=== PATIENT | male | born 1965 | race Caucasian/White ===

== ENCOUNTER 2017-06-01 19:44 | Emergency (ER) | payer BC, OTHER ==
[2017-06-01 19:57] VITALS: BP 146/93; PULSE 80; TEMP 98.2; BMI 33.0
[2017-06-01] MEDS ORDERED: diphenhydrAMINE HCL 25 MG CAPSULE (FP) PO ONE ×2 (20:34→20:42)
--- NOTE | 2017-06-01 20:34 | PDOC ---
History of Present Illness - General Chief Complaint: Bite Stated Complaint: BEE STING Time Seen by Provider: 06/01/17 19:59 - History of Present Illness Initial Comments: 06/01/17 20:44 Patient is a 52-year-old male with no past medical history who presents to the emergency department today stating that he got stung by multiple bees this evening. Patient was walking the dog when he went off the sidewalk. He felt that there were multiple stings happening and then he realized he was being attacked by bees. Patient reports approximately 8-10 bee stings.He states that now the areas of the stings are painful and a couple of them itch. Denies shortness of breath, mouth swelling, any ALLERGY to bee stings. Past History - Travel Traveled outside of the country in the last 30 days: No Close contact w/someone who was outside of country & ill: No - Past Medical History Allergies/Adverse Reactions: Allergies Allergy/AdvReac Type Severity Reaction Status Date / Time No Known Allergies Allergy Verified 06/01/17 19:52 Home Medications: Ambulatory Orders Cetirizine HCl [Zyrtec Rapidly Dissolving Tab -] 10 mg PO DAILY 06/01/17 Other medical history: Pt denies - Psycho/Social/Smoking Cessation Hx Anxiety: No Suicidal Ideation: No Smoking Status: No Smoking History: Never smoked Have you smoked in the past 12 months: No Number of Cigarettes Smoked Daily: 0 Information on smoking cessation initiated: No Hx Alcohol Use: No Drug/Substance Use Hx: No Substance Use Type: Alcohol Review of Systems - Review of Systems Constitutional: No: Chills, Fever, Malaise, Weakness HEENTM: No: Throat Swelling, Mouth Swelling Respiratory: No: Cough, Shortness of Breath, Wheezing Integumentary: Yes: Erythema, Lesions All Other Systems: Reviewed and Negative *Physical Exam - Vital Signs Last Vital Signs Temp Pulse Resp BP Pulse Ox 98.2 F 80 20 146/93 99 06/01/17 19:53 06/01/17 19:53 06/01/17 19:53 06/01/17 19:53 06/01/17 19:53 - Physical Exam Comments: 06/01/17 20:45 GENERAL: [The patient is awake, alert, and fully oriented, in no acute distress. ] HEAD: [Normal with no signs of trauma.No mouth or tongue swelling] EYES: [Pupils equal, round and reactive to light, extraocular movements intact, sclera anicteric, conjunctiva clear.] RESPIRATORY: CTAB, Equal b/l breath sounds with good areation to the bases. No W /R/R. EXTREMITIES: [Normal range of motion, no edema.] NEUROLOGICAL: [Normal speech, normal gait.] PSYCH: [Normal mood, normal affect.] SKIN: [Mulitple bee sting noted on exam. Approximatley 8-10 bee stings located on his left nieves, left knee, right axilla, right forearm, scalp. Warm, Dry, normal turgor, no rashes ] Medical Decision Making - Medical Decision Making 06/01/17 20:47 Patient is a 52-year-old male who just recently got stung by approximately 10 bees. We will give Benadryl, Decadron and ibuprofen to help with the symptoms of the stings. Patient's lungs sound clear and there is no mouth or tongue swelling. No concerned for anaphylaxis at this time. We'll observe the patient in the ED for approximately half an hour to watch for any symptoms. 06/01/17 21:09 Patient observed in the ED. No symptoms of anaphylaxis. Pt. requesting to go home as he is feeling better. Will discharge home at this time. Pt. understands all discharge instructions and all questions were answered at this time. *DC/Admit/Observation/Transfer Diagnosis at time of Disposition: Bee sting Qualifiers: Encounter type: initial encounter Injury intent: accidental or unintentional Qualified Code(s): T63.441A - Toxic effect of venom of bees, accidental ( unintentional), initial encounter - Discharge Dispostion Disposition: HOME Condition at time of disposition: Improved Admit: No - Referrals Referrals: Juan J Jernigan MD [Primary Care Provider] - - Patient Instructions Printed Discharge Instructions: DI for Insect Bites and Stings Additional Instructions: You sustained multiple bee stings today. You may take Benadryl as needed for itching. Do not drive after taking this medication. Continue taking your Claritin at home. He may ice the areas are painful. He may also take Tylenol or Motrin as needed for pain. Follow-up with her primary care doctor within one week. Return to the emergency department if he developed fevers, chills, signs of infection around the bee stings, shortness of breath or difficulty breathing, or any changes in your symptoms.
[2017-06-01] MEDS ORDERED: IBUPROFEN 600 MG TABLET (FP) PO ONE ×3 (20:37→20:46)
[2017-06-01] MEDS ORDERED: DEXAMETHASONE 4 MG TABLET (FP) PO ONE (20:37)
[2017-06-01] MEDS ORDERED: DEXAMETHASONE LIQUID 0.5 MG/5 ML 240 ML BULK BOTTLE PO ONE (20:42)
[2017-06-01] MEDS ORDERED: DEXAMETHASONE SOD PHOSPHATE 10 MG/1 ML VIAL ONE (20:42)
== END 2017-06-01 21:18 | disposition home or self-care (01) ==
LOC: JERFT 19:44
DX: T63.441A Toxic effect of venom of bees, accidental (unintentional), initial encounter (principal); Y92.480 Sidewalk as the place of occurrence of the external cause
CPT/HCPCS: 99281-25

== ENCOUNTER 2018-07-21 09:50 | Emergency (ER) | payer BC, OTHER ==
[2018-07-21 09:55] VITALS: BP 158/78; PULSE 67; TEMP 98; BMI 33.0
--- NOTE | 2018-07-21 11:22 | PDOC ---
History of Present Illness - General Chief Complaint: Laceration Stated Complaint: RIGHT HAND INJURY Time Seen by Provider: 07/21/18 11:11 History Source: Patient Exam Limitations: No Limitations - History of Present Illness Initial Comments: 07/21/18 11:16 cut on tomato sauce to IP joint of right thumb 07/21/18 11:47 Timing/Duration: reports: just prior to arrival Severity: Yes: mild Location: reports: none Associated Symptoms: reports: denies symptoms Past History - Travel Traveled outside of the country in the last 30 days: No Close contact w/someone who was outside of country & ill: No - Past Medical History Allergies/Adverse Reactions: Allergies Allergy/AdvReac Type Severity Reaction Status Date / Time No Known Allergies Allergy Verified 07/21/18 09:53 Home Medications: Ambulatory Orders Cetirizine HCl [Zyrtec Rapidly Dissolving Tab -] 10 mg PO DAILY 06/01/17 COPD: No - Immunization History Immunization Up to Date: No - Suicide/Smoking/Psychosocial Hx Smoking Status: No Smoking History: Never smoked Have you smoked in the past 12 months: No Number of Cigarettes Smoked Daily: 0 Information on smoking cessation initiated: No Hx Alcohol Use: No Drug/Substance Use Hx: No Substance Use Type: Alcohol Review of Systems - Review of Systems Able to Perform ROS?: Yes Is the patient limited Ukrainian proficient: Yes Constitutional: Yes: Symptoms Reported, See HPI, Malaise Musculoskeletal: Yes: Symptoms Reported, See HPI Integumentary: Yes: Symptoms Reported, See HPI Neurological: No: Symptoms reported All Other Systems: Reviewed and Negative *Physical Exam - Vital Signs Last Vital Signs Temp Pulse Resp BP Pulse Ox 98.0 F 67 18 158/78 100 07/21/18 09:53 07/21/18 09:53 07/21/18 09:53 07/21/18 09:53 07/21/18 09:53 - Physical Exam General Appearance: Yes: Nourished, Appropriately Dressed, Apparent Distress HEENT: positive: EOMI, JUSTIN, Normal ENT Inspection, TMs Normal, Pharynx Normal Neck: positive: Supple. negative: Tender Respiratory/Chest: positive: Lungs Clear Gastrointestinal/Abdominal: positive: Soft Extremity: positive: Normal Capillary Refill, Normal Inspection, Normal Range of Motion (has full range of motion with strong flexion and extension to distal and proximal aspect of right thumb against resistance. No obvious structural internal injury. Sensation intact distal to laceration.) Integumentary: positive: Normal Color Neurologic: positive: education administrative assistant II-XII NML intact, Fully Oriented, Alert, Normal Mood/ Affect, Normal Response, Motor Strength 5/5 Procedures - Laceration/Wound Repair Right Finger Wound Length: to 2.5 cm Wound Explored: clean Wound's Depth, Shape: superficial, linear Irrigated w/ Saline: Yes Betadine Prep: Yes Anesthesia: 1% Lidocaine Wound Repaired With: Sutures Suture Size/Type: 5:0 Number of Sutures: 5 (verticle mattress) Sterile Dressing Applied: Yes Progress Note - Progress Note Progress Note: Finger laceration repaired/diphtheria/pertussis booster updated today *DC/Admit/Observation/Transfer Diagnosis at time of Disposition: Laceration of thumb Qualifiers: Encounter type: initial encounter Damage to nail status: without damage Foreign body presence: without foreign body Laterality: right Qualified Code(s) : S61.011A - Laceration without foreign body of right thumb without damage to nail, initial encounter - Discharge Dispostion Disposition: HOME Condition at time of disposition: Stable Decision to Admit order: No - Referrals Referrals: Juan J Jernigan MD [Primary Care Provider] - - Patient Instructions Printed Discharge Instructions: DI for Laceration Repair Additional Instructions: Rest, elevate, avoid strenuous activity or heavy lifting until sutures are removed Leave dressing on for the next 24 hours, Then may remove dressing gently and wash area with soap and water. Reapply bacitracin ointment and dressing daily for the next 5 days On day #6 keep the wound protected and cover as needed until sutures are removed allowing wound to start to dry May use Tylenol or Motrin for pain relief Suture removal in :10-12 Days August 01 ask Annalee Your tetanus/diphtheria/pertussis booster was updated - Post Discharge Activity
[2018-07-21] MEDS ORDERED: DIPHTH,PERTUSS(ACELL),TET 0.5 ML DISP.SYRIN IM ONE (11:24)
== END 2018-07-21 11:53 | disposition home or self-care (01) ==
LOC: JERFT 09:50
PROC: 3E0234Z Introduction of Serum, Toxoid and Vaccine into Muscle, Percutaneous Approach (ICD-10-PCS; principal; 2018-07-21)
PROC: 0HQFXZZ Repair Right Hand Skin, External Approach (ICD-10-PCS; 2018-07-21)
DX: S61.011A Laceration without foreign body of right thumb without damage to nail, initial encounter (principal); W26.8XXA Contact with other sharp object(s), not elsewhere classified, initial encounter; Y93.G1 Activity, food preparation and clean up; Y92.010 Kitchen of single-family (private) house as the place of occurrence of the external cause; Y99.8 Other external cause status
CPT/HCPCS: 90715; 99281-25

== ENCOUNTER 2018-08-01 11:08 | Emergency (ER) | payer BC ==
[2018-08-01 11:14] VITALS: BP 143/86; PULSE 65; TEMP 98; BMI 33.0
--- NOTE | 2018-08-01 11:53 | PDOC ---
Suture Removal/Wound Check HPI - History of Present Illness Chief Complaint: Suture/Staple Removal(Here) Stated Complaint: STITCHES REMOVAL Time Seen by Provider: 08/01/18 11:39 History Source: Yes: Patient Exam Limitations: Yes: No Limitations Treated at: [facility] ED - Previous ED Treatment Type of procedure performed on last visit: Yes: Laceration Repair Past History - Travel Traveled outside of the country in the last 30 days: No Close contact w/someone who was outside of country & ill: No - Past Medical History Allergies/Adverse Reactions: Allergies Allergy/AdvReac Type Severity Reaction Status Date / Time No Known Allergies Allergy Verified 08/01/18 11:13 Home Medications: Ambulatory Orders Cetirizine HCl [Zyrtec Rapidly Dissolving Tab -] 10 mg PO DAILY 06/01/17 COPD: No CHF: No - Immunization History Immunization Up to Date: No - Suicide/Smoking/Psychosocial Hx Smoking Status: No Smoking History: Never smoked Have you smoked in the past 12 months: No Number of Cigarettes Smoked Daily: 0 Information on smoking cessation initiated: No Hx Alcohol Use: No Drug/Substance Use Hx: No Substance Use Type: None Suture Removal/Wound Check PE - Physical Exam Laceration/Wound Check Symptoms: reports: None *Review of Systems - Review of Systems Constitutional: Yes: Symptoms Reported, See HPI. No: Malaise HEENTM: No: Symptoms Reported Respiratory: No: Symptoms reported Musculoskeletal: Yes: Symptoms Reported, Joint Pain. No: Joint Swelling Integumentary: Yes: Symptoms Reported, See HPI *Physical Exam - Vital Signs Last Vital Signs Temp Pulse Resp BP Pulse Ox 98 F 65 17 143/86 98 08/01/18 11:12 08/01/18 11:12 08/01/18 11:12 08/01/18 11:12 08/01/18 11:12 - Physical Exam General Appearance: Yes: Nourished, Appropriately Dressed. No: Apparent Distress HEENT: positive: JUSTIN, Normal ENT Inspection, TMs Normal, Pharynx Normal Musculoskeletal: positive: Normal Inspection Extremity: positive: Normal Capillary Refill, Normal Inspection, Normal Range of Motion (well-healed suture line with 5 intact sutures at IP joint of right thumb. Has full range of motion, and sensation intact distal to injury.) Medical Decision Making - Medical Decision Making 08/01/18 11:52 5 enter sutures removed without incident, well approximated suture line, Steri- Strips applied *DC/Admit/Observation/Transfer Diagnosis at time of Disposition: Visit for suture removal - Discharge Dispostion Disposition: HOME Condition at time of disposition: Stable Decision to Admit order: No - Referrals - Patient Instructions Printed Discharge Instructions: DI for Suture Removal Additional Instructions: Rest, avoid strenuous activity or exercise until scabbing is completely resolved May use bacitracin ointment until scabbing is gone After may use vitamin E oil, poke hole in vitamin E capsule and use oil from the capsule on wound- may help resolve some of the discoloration of the scar Keep wound out of the sun for at least one year to avoid darkening of scar tissue - Post Discharge Activity
== END 2018-08-01 11:59 | disposition home or self-care (01) ==
LOC: JERFT 11:08
DX: Z48.02 Encounter for removal of sutures (principal)
CPT/HCPCS: 99281-25

== ENCOUNTER 2019-02-27 12:06 | Emergency (ER) | payer BC | END 2019-02-27 13:07 | disposition home or self-care (01) | LOC: FER 12:06 ==

== ENCOUNTER 2021-10-04 21:47 | Emergency (ER) | payer BC ==
[2021-10-04 21:53] VITALS: BP 120/80; PULSE 75; TEMP 98.3; BMI 33.0
[2021-10-04] MEDS ORDERED: IBUPROFEN 400 MG TABLET (FP) PO ONE ×2 (22:04→22:05)
== END 2021-10-04 22:48 | disposition home or self-care (01) ==
LOC: FER 21:47
DX: S93.402A Sprain of unspecified ligament of left ankle, initial encounter (principal); X50.0XXA Overexertion from strenuous movement or load, initial encounter
CPT/HCPCS: 73610-TC-LT-FY; 99283-25

== ENCOUNTER 2024-02-14 11:40 | Emergency (ER) | payer BC ==
[2024-02-14 12:18] VITALS: BP 147/88; PULSE 56; RESP 16; TEMP 98.4; BMI 33.6
== END 2024-02-14 13:54 | disposition home or self-care (01) ==
LOC: JERFT 11:40
DX: S64.01XA Injury of ulnar nerve at wrist and hand level of right arm, initial encounter (principal); M79.601 Pain in right arm; M79.2 Neuralgia and neuritis, unspecified; X50.0XXA Overexertion from strenuous movement or load, initial encounter; Y92.007 Garden or yard of unspecified non-institutional (private) residence as the place of occurrence of the external cause
CPT/HCPCS: 73070-TC-RT-FY; 99283-25